=== PATIENT | female | born 1965 ===

== ENCOUNTER → 2021-05-27 17:18 | Outpatient (REF) | payer MEDICAID, SELFPAY ==
[2021-05-27 18:09] LABS: Ferritin 46 ng/mL (8-252); Iron 48 ug/dL (50-170)
== END ==
LOC: LABSPEC 17:18
PROVIDERS: Visit Provider Nurse Practitioner Family
DX: G89.29 Other chronic pain (principal); D64.9 Anemia, unspecified
CPT/HCPCS: 82728; 83540